=== PATIENT | female | born 1955 | race Caucasian/White ===

== ENCOUNTER 2024-05-31 09:04 | Outpatient (CLI) | payer MEDICARE | END 2024-05-31 09:05 | disposition home or self-care (01) | LOC: CSHRAD 09:04 | PROVIDERS: ATTEND Surgery | DX: K44.9 Diaphragmatic hernia without obstruction or gangrene (principal); K21.9 Gastro-esophageal reflux disease without esophagitis | CPT/HCPCS: 74220 ==

== ENCOUNTER 2024-10-14 13:52 | Outpatient (CLI) | payer MEDICARE | END 2024-10-14 13:53 | disposition home or self-care (01) | LOC: CSHMAMMO 13:52 | PROVIDERS: ATTEND Internal Medicine | DX: M81.0 Age-related osteoporosis without current pathological fracture (principal); M85.88 Other specified disorders of bone density and structure, other site | CPT/HCPCS: 77080 ==